=== PATIENT | male | born 1980 | race African-American/Black ===

== ENCOUNTER 2021-09-17 08:15 | Emergency (ER) | payer BC, SELFPAY ==
[2021-09-17] MEDS ORDERED: ASPIRIN 81 MG CHEWABLE TABLET ONE (08:35)
[2021-09-17] MEDS ORDERED: NA CHLORIDE 0.9% 1,000 ML ONE (08:35)
[2021-09-17] MEDS ORDERED: METOPROLOL TAR 50 MG TAB ONE (08:35)
[2021-09-17 09:02] LABS: Absolute Lymphocytes (CBC) 2.4 K/uL (0.7-4.9); Basophils % 0.7 % (0-1.3); Hematocrit 53.9 % (39.6-49.0); Lymphocytes % 28.6 % (15.3-44.8); MPV 8.1 fL (7.6-11.3); RBC Red Blood Cell Count 6.02 M/uL (4.33-5.43)
[2021-09-17 09:03] LABS: Protime INR 0.98
[2021-09-17 09:18] LABS: ALT/SGPT 27 U/L (12-78); AST/SGOT 16 U/L (15-37); Albumin 3.8 g/dL (3.4-5.0); Alkaline Phosphatase 76 U/L (45-117); BUN Blood Urea Nitrogen 18 mg/dL (7-18); Bicarbonate 29 mmol/L (21-32); Bilirubin Direct 0.1 mg/dL (0-0.2); Bilirubin Total 0.5 mg/dL (0.2-1.0); Glucose Level 91 mg/dL (74-106); Lipase 91 U/L (73-393); Magnesium 2.2 mg/dL (1.8-2.4); NT PRO-BNP 6 pg/mL (<125); Potassium 3.9 mmol/L (3.5-5.1); Protein, Total 8.1 g/dL (6.4-8.2); Sodium Level 141 mmol/L (136-145); Troponin (Emerg Dept Use Only) < 0.02 ng/mL (0.0-0.045)
[2021-09-17] MEDS ORDERED: AMLODIPINE 10 MG TAB ONE (09:22)
[2021-09-17] MEDS ORDERED: AMLODIPINE 5 MG TAB ONE (09:25)
--- NOTE | 2021-09-17 09:50 | RAD REPORT ---
EXAM DESCRIPTION: CT - Angio Aorta For Dissection - 09/17/2021 9:35 am CLINICAL HISTORY: Chest pain radiating to the back. Chest pain;Dissection;PE COMPARISON: No comparisons TECHNIQUE: CT angiography of the aorta was performed with MIPs. All CT scans are performed using dose optimization technique as appropriate and may include automated exposure control or mA/KV adjustment according to patient size. FINDINGS: A left aortic arch is present with normal branching pattern of the great vessels.No acute aortic finding is seen such as aneurysm, penetrating ulcer or dissection. The celiac axis, SMA, PIERCE and renal arteries are patent. No evidence of pulmonary embolism. The lungs are clear. The liver demonstrates a small flash filling hemangioma in the left lobe measuring 9 mm.No biliary di latation evident.The spleen, pancreas, adrenal glands and kidneys are within normal limits for arteri al phase imaging.Benign cysts are present in both kidneys. No bowel obstruction, free fluid or abscess.Normal appendix.No pathologic enlarged lymphadenopathy id entified.Small fat containing left inguinal hernia. No fracture or worrisome bone lesion seen. IMPRESSION: No acute aortic finding is demonstrated.
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
--- NOTE | 2021-09-17 10:14 | EDPHYS ---
Physician Documentation [facility] Name: Rich Tobar Age: 41 yrs Sex: Male : 1980 Arrival Date: 09/17/2021 Time: 08:18 Bed 13 Private MD: ZEN Physician Dale Monroe HPI: 09/17 09:10 This 41 yrs old Black Male presents to ER via Ambulatory with complaints of Chest Pain, cesar Back Pain. 09:10 The patient or guardian reports chest pain that is located primarily in the substernal cesar area, anterior chest wall, right. The pain radiates to chest. Associated signs and symptoms: Pertinent positives: shortness of breath. The chest pain is described as a pressure, sharp. Duration: The patient or guardian reports a single episode, that is still ongoing. Modifying factors: The symptoms are alleviated by remaining still, the symptoms are aggravated by activity, breathing, movement, palpation of area. Severity of pain: At its worst the pain was mild in the emergency department the pain is unchanged. The patient has not experienced similar symptoms in the past. Historical: - Allergies: 08:28 No Known Allergies; tw2 - Home Meds: 08:28 atenolol 50 mg Oral tab 1 tab once daily (Last Dose: 09/11/2021) [Active]; tw2 - PMHx: 08:28 Hypertension; tw2 - Immunization history:: Client reports receiving the 2nd dose of the Covid vaccine. - Social history:: Smoking status: Patient reports the use of cigarette tobacco products, "2-3 cigarettes a day". - Family history:: not pertinent. ROS: 09:10 Constitutional: Negative for fever, chills, and weight loss, Eyes: Negative for injury, cesar pain, redness, and discharge, ENT: Negative for injury, pain, and discharge, Neck: Negative for injury, pain, and swelling, Respiratory: Negative for shortness of breath, cough, wheezing, and pleuritic chest pain, Abdomen/GI: Negative for abdominal pain, nausea, vomiting, diarrhea, and constipation, Back: Negative for injury and pain, : Negative for injury, bleeding, discharge, and swelling, MS/Extremity: Negative for injury and deformity, Skin: Negative for injury, rash, and discoloration, Neuro: Negative for headache, weakness, numbness, tingling, and seizure, Psych: Negative for depression, anxiety, suicide ideation, homicidal ideation, and hallucinations, Allergy/Immunology: Negative for hives, rash, and allergies, Endocrine: Negative for neck swelling, polydipsia, polyuria, polyphagia, and marked weight changes, Hematologic/Lymphatic: Negative for swollen nodes, abnormal bleeding, and unusual bruising. 09:10 Cardiovascular: Positive for chest pain, of the right clavicle, anterior aspect of right upper chest and right breast. Exam: 09:10 Constitutional: This is a well developed, well nourished patient who is awake, alert, cesar and in no acute distress. Head/Face: Normocephalic, atraumatic. Eyes: Pupils equal round and reactive to light, extra-ocular motions intact. Lids and lashes normal. Conjunctiva and sclera are non-icteric and not injected. Cornea within normal limits. Periorbital areas with no swelling, redness, or edema. ENT: Nares patent. No nasal discharge, no septal abnormalities noted. Tympanic membranes are normal and external auditory canals are clear. Oropharynx with no redness, swelling, or masses, exudates, or evidence of obstruction, uvula midline. Mucous membranes moist. Neck: Trachea midline, no thyromegaly or masses palpated, and no cervical lymphadenopathy. Supple, full range of motion without nuchal rigidity, or vertebral point tenderness. No Meningismus. Cardiovascular: Regular rate and rhythm with a normal S1 and S2. No gallops, murmurs, or rubs. Normal PMI, no JVD. No pulse deficits. Respiratory: Lungs have equal breath sounds bilaterally, clear to auscultation and percussion. No rales, rhonchi or wheezes noted. No increased work of breathing, no retractions or nasal flaring. Abdomen/GI: Soft, non-tender, with normal bowel sounds. No distension or tympany. No guarding or rebound. No evidence of tenderness throughout. Back: No spinal tenderness. No costovertebral tenderness. Full range of motion. Male : Normal genitalia with no discharge or lesions. Skin: Warm, dry with normal turgor. Normal color with no rashes, no lesions, and no evidence of cellulitis. MS/ Extremity: Pulses equal, no cyanosis. Neurovascular intact. Full, normal range of motion. Neuro: Awake and alert, GCS 15, oriented to person, place, time, and situation. Cranial nerves II-XII grossly intact. Motor strength 5/5 in all extremities. Sensory grossly intact. Cerebellar exam normal. Normal gait. Psych: Awake, alert, with orientation to person, place and time. Behavior, mood, and affect are within normal limits. 09:10 Chest/axilla: Inspection: normal, Palpation: tenderness, that is mild, of the right clavicle, anterior aspect of right upper chest and right breast. 09:10 ECG was reviewed by the Attending Physician. Vital Signs: 08:25 BP 135 / 100; Pulse 86; Resp 17; Temp 98.2(O); Pulse Ox 97% on R/A; Weight 92.08 kg tw2 (R); Height 5 ft. 8 in. (172.72 cm); Pain 8/10; 08:30 BP 134 / 94; Pulse 84; Resp 17; Pulse Ox 98% on R/A; tw2 09:22 BP 126 / 93; Pulse 76; Resp 15; Pulse Ox 97% on R/A; tw2 09:50 BP 116 / 84; Pulse 77; Resp 17; Pulse Ox 100% on R/A; tw2 08:25 Body Mass Index 30.87 (92.08 kg, 172.72 cm) tw2 MDM: 08:30 Patient medically screened. cesar 09:13 Differential diagnosis: abnormal EKG, acute myocardial infarction, anxiety, coronary cesar artery disease chest wall pain, gastroesophageal reflux disease (GERD), hiatal hernia, pancreatitis, pneumothorax, pulmonary embolus, stable angina, thoracic aortic disection, unstable angina. HEART Score: History: Slightly Suspicious (0), ECG: Normal (0), Age: < or = 45 years (0), Risk Factors: 1 or 2 risk factors (1), [Hypertension] [+ Family HX] Troponin: < or = 1 x Normal Limit (0), Total Score = 1. The patient's deep vein thrombosis risk score was calculated as follows: Total Score: 0. This patient was found to be at low risk for a deep vein thrombosis by using the Well's assessment criteria. The patient's pulmonary embolism risk score was calculated as follows: Total Score: 0-2 points. This patient was found to be at low risk for a pulmonary embolism by using the Well's assessment criteria. DELORIS Risk Score: TOTAL SCORE = 0. Data reviewed: vital signs, nurses notes, lab test result(s), EKG, radiologic studies, CT scan, plain films. Data interpreted: campus monitor: rate is 86 beats/min, rhythm is regular, Pulse oximetry: on room air is 97 %. Test interpretation: by ED physician or midlevel provider: ECG, plain radiologic studies. Counseling: I had a detailed discussion with the patient and/or guardian regarding: the historical points, exam findings, and any diagnostic results supporting the discharge/admit diagnosis, lab results, radiology results, the need for outpatient follow up, for definitive care, a skill labor, a family practitioner. 09/17 08:32 Order name: Basic Metabolic Panel; Complete Time: 09:41 [facility] 09/17 08:32 Order name: CBC with Diff; Complete Time: 09:41 [facility] 09/17 08:32 Order name: LFT's; Complete Time: 09:41 [facility] 09/17 08:32 Order name: Magnesium; Complete Time: 09:41 [facility] 09/17 08:32 Order name: NT PRO-BNP; Complete Time: 09:41 [facility] 09/17 08:32 Order name: PT-INR; Complete Time: 09:41 [facility] 09/17 08:32 Order name: Troponin (emerg Dept Use Only); Complete Time: 09:41 [facility] 09/17 08:32 Order name: XRAY Chest (1 view) [facility] 09/17 08:32 Order name: Lipase; Complete Time: 09:41 [facility] 09/17 08:32 Order name: CT Aorta for Dissection; Complete Time: 10:13 [facility] 09/17 08:32 Order name: EKG; Complete Time: 08:33 [facility] 09/17 08:32 Order name: Cardiac monitoring; Complete Time: 08:33 [facility] 09/17 08:32 Order name: EKG - Nurse/Tech; Complete Time: 08:33 [facility] 09/17 08:32 Order name: IV Saline Lock; Complete Time: 08:53 [facility] 09/17 08:32 Order name: Labs collected and sent; Complete Time: 08:53 [facility] 09/17 08:32 Order name: O2 Per Protocol; Complete Time: 08:33 [facility] 09/17 08:32 Order name: O2 Sat Monitoring; Complete Time: 08:33 [facility] EC:10 Rate is 87 beats/min. Rhythm is regular. QRS [place] is Normal. [place] interval is normal. QRS cesar interval is normal. QT interval is normal. No Q waves. T waves are Normal. No ST changes noted. Clinical impression: NSR w/ Non-specific ST/T Changes and No evidence of ischemia. Interpreted by me. Reviewed by me. Administered Medications: 09:00 Drug: NS 0.9% 500 ml Route: IV; Rate: bolus; Site: right antecubital; tw2 :28 Follow up: Response: No adverse reaction; IV Status: Completed infusion; IV Intake: tw2 500ml 09:00 Drug: Aspirin Chewable Tablet 162 mg Route: PO; tw2 :28 Follow up: Response: No adverse reaction tw2 : Drug: Lopressor (metoprolol TARTRATE) 50 mg Route: PO; tw2 :58 Follow up: Response: No adverse reaction; Blood pressure is lowered tw2 :24 Not Given (Duplicate Order): Norvasc (amlodipine) 10 mg PO once cesar : Drug: NS 0.9% 1000 ml Route: IV; Rate: 125 ml/hr; Site: right antecubital; tw2 10:39 Follow up: IV Status: Order to discontinue infusion tw2 : Drug: Norvasc (amlodipine) 5 mg Route: PO; tw2 09:58 Follow up: Response: No adverse reaction tw2 Disposition Summary: 09/17/21 10:13 Discharge Ordered Location: Home cesar Problem: new cesar Symptoms: have improved cesar Condition: Stable cesar Diagnosis - Chest pain, unspecified csear - Essential (primary) hypertension cesar Followup: cesar - With: Private Physician - When: 2 - 3 days - Reason: Recheck today's complaints, Continuance of care, Re-evaluation by your physician Followup: cesar - With: - When: 2 - 3 days - Reason: Recheck today's complaints, Continuance of care, Re-evaluation by your physician Discharge Instructions: - Discharge Summary Sheet cesar - Nonspecific Chest Pain, Adult cesar - Chest Wall Pain cesar - Hypertension, Adult cesar - Chest Wall Pain, [id number] cesar - Nonspecific Chest Pain, Adult, [id number] cesar - Hypertension, Adult, [id number] cesar - How to Take Your Blood Pressure, [id number] cesar - Aspirin and Your Heart cesar - Managing Your Hypertension cesar Forms: - Medication Reconciliation Form cesar - Thank You Letter cesar - Work release form tw2 - Antibiotic Education cesar - Prescription [facility] Prescriptions: - Norvasc 5 mg Oral Tablet - take 1 tablet by ORAL route once daily; 20 tablet; Refills: 0, Product cesar Selection Permitted - Toprol XL 50 mg Oral Tablet - take 1 tablet by ORAL route once daily; 20 tablet; Refills: 0, Product cesar Selection Permitted Signatures: Dispatcher [employer] Dale Shankar MD MD cha Wise, Tara RN RN tw2
[2021-09-17 10:46] VITALS: TEMP 98.2
[2021-09-17 10:50] VITALS: BP 116/84; O2SAT 100
--- NOTE | 2021-09-18 13:06 | EKG ---
Test Date: 2021-09-17 Test Time: 08:29:41 Plug Paster: YUNG MEASUREMENT RESULTS: Intervals: Rate: 87 MS: 142 QRSD: 82 QT: 374 QTc: 450 [place]: P: 58 MS: 142 QRS: -18 T: 46 INTERPRETIVE STATEMENTS: Normal sinus rhythm Possible Left atrial enlargement Borderline ECG Compared to ECG 03/23/2017 07:12:47 No significant changes Electronically Signed On 09-18-21 13:02:59 HISTORICAL ARCHEOLOGIST by Amaury Carias
== END 2021-09-17 10:39 | disposition home or self-care (01) ==
LOC: ER 08:15 → MERGE 08:15 → ER 10:39
DX: I10 Essential (primary) hypertension (principal); F17.210 Nicotine dependence, cigarettes, uncomplicated
CPT/HCPCS: 96361; 93005; 85025; 80048; 36415; 83735; 85610; 80076; 84484; 83690; 83880; 71275; 74175; 71045; 96360; 99285; Q9967; J7030